=== PATIENT | male | born 1985 | race Caucasian/White ===

== ENCOUNTER 2020-01-31 06:08 | Day surgery (SDC) | payer BC ==
[2020-01-24 10:49] LABS: BASOPHILS % (AUTO) 0.7 % (0-1); EOSINOPHILS % (AUTO) 0.7 % (0-6); LYMPHOCYTES # (AUTO) 1.9 X10'3 (1.1-4.8); MEAN CORPUSCULAR HEMOGLOBIN 29.2 PG (27.0-31.0); MEAN CORPUSCULAR HGB CONC 34.5 g/dL (33.0-36.5); MEAN CORPUSCULAR VOLUME 84.8 FL (78-98); MEAN PLATELET VOLUME 6.9 FL (7.4-10.4); MONOCYTES # (AUTO) 0.6 X10'3 (0-0.9); MONOCYTES % (AUTO) 10.3 % (2-12); NEUTROPHILS # (AUTO) 3.3 X10'3 (1.8-7.7); NEUTROPHILS % (AUTO) 56.3 % (42-75); PRE OP HEMATOCRIT 44.2 % (42.0-52.0); PRE OP HEMOGLOBIN 15.2 g/dL (14.0-17.9); PRE OP PLATELET COUNT 302 X10'3 (140-440); RED BLOOD COUNT 5.21 X10'6 (4.70-6.10); RED CELL DISTRIBUTION WIDTH 12.8 % (11.5-14.5)
[2020-01-24 11:03] LABS: PRE OP PROTIME 10.4 SECONDS (9.0-12.0)
[2020-01-24 11:06] LABS: ALBUMIN 4.4 G/DL (3.4-5.0); ALBUMIN/GLOBULIN RATIO 1.2 (1.1-1.5); ALKALINE PHOSPHATASE 71 IU/L (46-116); BLOOD UREA NITROGEN 12 MG/DL (7-18); BUN/CREATININE RATIO 11.7 (5.4-32.0); CALCIUM 9.5 MG/DL (8.5-10.1); CHLORIDE 103 MMOL/L (99-107); CREATININE 1.03 MG/DL (0.60-1.10); PRE OP ALT 56 U/L (30-65); PRE OP ANION GAP 9 (8-16); PRE OP AST 24 U/L (10-37); PRE OP BILIRUB, TOTAL 0.5 MG/DL (0.0-1.0); PRE OP GLUCOSE 98 MG/DL (70-104); PRE OP POTASSIUM 4.1 MMOL/L (3.4-5.1); PRE OP SODIUM 139 MMOL/L (135-145); TOTAL CARBON DIOXIDE 27.3 MMOL/L (24-32); TOTAL PROTEIN 8.2 G/DL (6.4-8.2); eGFR 83 ML/MIN
[2020-01-31] VITALS (22 sets, daily range): BP systolic 115–148; BP diastolic 66–91
[~2020-01-31] VITALS: Ht 185.4 cm; Wt 117.9 kg
[~2020-01-31 06:08] MED LIST: CHOL100046 PO; FIBER SUPPLEMENT PO; FLEC150T PO; MULT-687 PO; VERA240T12 PO; famotidine 20mg tablet PO ONE; oxymetazoline 15 ML nasal spray NS ONE; ringers solution, lacted 1,000 ML IV SCH
[2020-01-31] MEDS ORDERED: LIDOcaine 1% (10mg/ml) 2ml vial ONE (06:44)
[2020-01-31] MEDS ORDERED: LIDOcaine 1% W/epiNEPHrine 1:100,000 20ml vial ONE (06:54)
[2020-01-31] MEDS ORDERED: mupirocin 2% ointment 22GM ONE (06:54)
[2020-01-31] MEDS ORDERED: cefTAZidime 1gm inj ONE (06:55)
[2020-01-31] MEDS ORDERED: oxymetazoline 15 ML nasal spray NS ONE (06:55)
[2020-01-31] MEDS ORDERED: methylPREDNISolone acetate 80mg/ml inj**IM only ONE ×2 (06:56→07:46)
[2020-01-31] MEDS ORDERED: cocaine 4% topical solution 4ml bottle ONE (06:59)
[2020-01-31] MEDS ORDERED: LIDOcaine 2% (20mg/ml) 5ml vial ONE (07:50)
[2020-01-31] MEDS ORDERED: propofol inj 20 ML IV ONE (07:50)
[2020-01-31] MEDS ORDERED: fentaNYL /PF 50mcg/ml 5ml ampule ONE (07:50)
[2020-01-31] MEDS ORDERED: MIDAZolam 5mg/5ml vial ONE (07:50)
[2020-01-31] MEDS ORDERED: ondansetron/PF 4mg/2ml inj ONE (07:51)
[2020-01-31] MEDS ORDERED: morphine 2 MG/ML inj. syringe IV PRN (08:00)
[2020-01-31] MEDS ORDERED: morphine 4 MG/ML inj SYRINge IV PRN (08:00)
[2020-01-31] MEDS ORDERED: ondansetron/PF 4mg/2ml inj IV PRN (08:00)
[2020-01-31] MEDS ORDERED: labetalol 20mg/4ml (5mg/ml) syringe IV PRN (08:00)
[2020-01-31] MEDS ORDERED: fentaNYL/PF 50MCG/1 ML 2ML syringe IV PRN ×2 (08:00)
[2020-01-31] MEDS ORDERED: ringers solution, lacted 1,000 ML IV SCH (08:00)
[2020-01-31] MEDS ORDERED: hydrALAZINE 20mg/ml inj. IV PRN (08:00)
[2020-01-31] MEDS ORDERED: dexamethasone sod phosphate 10mg/ml inj ONE (08:10)
[2020-01-31] MEDS ORDERED: sevoflurane 250ml liquid IH ONE (08:10)
[2020-01-31] MEDS ORDERED: BUPIVAcaine 0.5% W/EPI /PF 30ml vial IJ ONE (09:04)
[2020-01-31] MEDS ORDERED: labetalol 20mg/4ml (5mg/ml) syringe IV ONE (09:05)
--- NOTE | 2020-01-31 10:05 | NUR ---
TRANSPORTED FROM OR VIA GURNEY ACCOMPANIED BY ANESTHESIOLOGIST DR ZIEGLER, REPORT GIVEN. PT DROWSY BUT AWAKENS EASILY WITH NO COMPLAINT OF PAIN. COTTENOID DRESSING TO R NARES CDI. 20 GAUGE PIV R HAND PATENT AND RUNNING LR AT 100 ML/HR. SINGH,VSS, RESTING COMFORTABLY
[2020-01-31] MEDS ORDERED: oxymetazoline 15 ML nasal spray NS PRN (10:29)
[2020-01-31] MEDS ORDERED: mupirocin 2% ointment 22GM TP SCH (10:30)
[2020-01-31] MEDS ORDERED: salt irrigation nasal spray 45 ML SPRAY NS PRN (10:35)
[2020-01-31 11:30] LABS: PARTIAL THROMBOPLASTIN TIME 30 SECONDS (22-32)
--- NOTE | 2020-01-31 13:25 | NUR ---
PT AWAKE AND ALERT WITH NO COMPLAINT OF PAIN. COTTENOID DRESSING TO R NARES CDI. 20 GAUGE PIV r hand dc/d cath tip intact. SINGH,VSS, ABLE TO TOLERATE FLUIDS, DRESS SELF, AMBULATE AND VOID.VSS. DISCHARGE INSTRUCTIONS GIVEN AND PT VERBALIZED UNDERSTANDING. TRANSPORTED VIA WHEELCHAIR TO IN PRIVATE VEHICLE TO HOME. INSTRUCTIONS GIVEN TO WELL.
== END 2020-01-31 13:25 | disposition home or self-care (01) ==
LOC: PAS 06:08
PROVIDERS: ATTEND Otolaryngology
DX: J34.2 Deviated nasal septum (principal); J34.3 Hypertrophy of nasal turbinates; J32.8 Other chronic sinusitis; J95.62 Intraoperative hemorrhage and hematoma of a respiratory system organ or structure complicating other procedure; E66.9 Obesity, unspecified; Z68.34 Body mass index [BMI] 34.0-34.9, adult; F41.9 Anxiety disorder, unspecified; Z20.828 Contact with and (suspected) exposure to other viral communicable diseases; Z79.899 Other long term (current) drug therapy; Y83.8 Other surgical procedures as the cause of abnormal reaction of the patient, or of later complication, without mention of misadventure at the time of the procedure; Y82.8 Other medical devices associated with adverse incidents
CPT/HCPCS: 30140; 30520; 31254; 31256; 36415; 61782; 80053; 82948; 85025; 85576; 85610; 85730; 87635; A6402; C9250; J0713; J1040; J1100; J2001; J2250; J2405; J2704; J3010; J7040; J7120; A4618; A7000; J3490

== ENCOUNTER 2020-04-17 11:49 | Day surgery (SDC) | payer BC ==
[2020-04-12 10:49] LABS: BASOPHILS # (AUTO) 0.1 X10'3 (0-0.2); BASOPHILS % (AUTO) 0.9 % (0-1); EOSINOPHILS % (AUTO) 0.5 % (0-6); LYMPHOCYTES # (AUTO) 1.7 X10'3 (1.1-4.8); LYMPHOCYTES % (AUTO) 31.4 % (21-51); MEAN CORPUSCULAR HEMOGLOBIN 28.8 PG (27.0-31.0); MEAN CORPUSCULAR HGB CONC 34.3 g/dL (33.0-36.5); MEAN CORPUSCULAR VOLUME 83.9 FL (78-98); MEAN PLATELET VOLUME 7.2 FL (7.4-10.4); MONOCYTES # (AUTO) 0.6 X10'3 (0-0.9); NEUTROPHILS # (AUTO) 3.2 X10'3 (1.8-7.7); NEUTROPHILS % (AUTO) 57.2 % (42-75); PRE OP HEMOGLOBIN 15.1 g/dL (14.0-17.9); PRE OP PLATELET COUNT 285 X10'3 (140-440); RED BLOOD COUNT 5.24 X10'6 (4.70-6.10)
[2020-04-12 11:05] LABS: ALBUMIN 4.3 G/DL (3.4-5.0); ALBUMIN/GLOBULIN RATIO 1.1 (1.1-1.5); ALKALINE PHOSPHATASE 82 IU/L (46-116); BLOOD UREA NITROGEN 12 MG/DL (7-18); BUN/CREATININE RATIO 12.2 (5.4-32.0); CALCIUM 9.4 MG/DL (8.5-10.1); CHLORIDE 106 MMOL/L (99-107); CREATININE 0.98 MG/DL (0.60-1.10); PRE OP ALT 47 U/L (30-65); PRE OP ANION GAP 10 (8-16); PRE OP AST 23 U/L (10-37); PRE OP BILIRUB, TOTAL 0.5 MG/DL (0.0-1.0); PRE OP GLUCOSE 106 MG/DL (70-104); PRE OP POTASSIUM 4.2 MMOL/L (3.4-5.1); PRE OP SODIUM 142 MMOL/L (135-145); TOTAL CARBON DIOXIDE 25.9 MMOL/L (24-32); TOTAL PROTEIN 8.1 G/DL (6.4-8.2); eGFR 88 ML/MIN
[2020-04-17] VITALS (7 sets, daily range): BP systolic 111–154; BP diastolic 71–100
[~2020-04-17] VITALS: Ht 185.4 cm; Wt 118.7 kg
[~2020-04-17 11:49] MED LIST changes: +LIDOcaine 1% w/epiNEPHrine 1:200,000 30ml vial ONE; +cefTAZidime 1gm inj ONE; +cocaine 4% topical solution 4ml bottle ONE; +meperidine/PF 25mg/ml syringe IV PRN; +methylPREDNISolone acetate 80mg/ml inj**IM only ONE; +morphine 2 MG/ML inj. syringe IV PRN; +morphine 4 MG/ML inj SYRINge IV PRN; +mupirocin 2% ointment 22GM ONE; +ondansetron/PF 4mg/2ml inj IV PRN; +proCHLORperazine 10 MG/2 ml inj IV PRN
[2020-04-17] MEDS ORDERED: fentaNYL /PF 50mcg/ml 5ml ampule ONE (11:53)
[2020-04-17] MEDS ORDERED: midazolam 2 mg/2 ml injection ONE (11:53)
[2020-04-17] MEDS: oxymetazoline 15 ML nasal spray NS PRN ×2 (12:03→13:11)
[2020-04-17] MEDS ORDERED: dexamethasone sod phosphate 10mg/ml inj ONE (12:17)
[2020-04-17] MEDS ORDERED: sevoflurane 250ml liquid IH ONE (12:17)
[2020-04-17] MEDS ORDERED: ondansetron/PF 4mg/2ml inj ONE (12:17)
[2020-04-17] MEDS ORDERED: propofol inj 20 ML IV ONE (12:27)
[2020-04-17] MEDS ORDERED: LIDOcaine 2% (20mg/ml) 5ml vial ONE (12:27)
--- NOTE | 2020-04-17 13:38 | NUR ---
Received from OR via , accompanied by Anesthesiologist DR ABREU and report given by Anesthesiolgist. AWAKENS TO VOICE. VITALS STABLE, DRESSINGS DI. STAS PAIN.
[2020-04-17] MEDS ORDERED: salt irrigation nasal spray 45 ML SPRAY NS PRN (14:10)
[2020-04-17] MEDS ORDERED: mupirocin 2% ointment 22GM TP SCH (14:18)
--- NOTE | 2020-04-17 14:48 | NUR ---
AWAKE AND ORIENTED. VITALS STABLE. COTTONOIDS WERE REMOVEED AND MUSTACHE DRESSING APPLIED. DRESSING IS DI. STAS PAIN. HOME WITH HIS AT THIS TIME.
== END 2020-04-17 14:48 | disposition home or self-care (01) ==
LOC: PAS 11:49
PROVIDERS: ATTEND Otolaryngology
DX: J32.8 Other chronic sinusitis (principal); J34.3 Hypertrophy of nasal turbinates; E66.9 Obesity, unspecified; Z68.34 Body mass index [BMI] 34.0-34.9, adult; Z79.899 Other long term (current) drug therapy; Z98.890 Other specified postprocedural states; Z20.828 Contact with and (suspected) exposure to other viral communicable diseases
CPT/HCPCS: 30140; 31254; 31267; 36415; 61782; 80053; 82948; 85025; 87635; A6402; C9250; J0713; J1040; J1100; J2001; J2250; J2405; J2704; J3010; J7040; J7120; A4618; A7000

== ENCOUNTER 2021-11-24 12:18 | Emergency (ER) | payer BC ==
[~2021-11-24] VITALS: Ht 185.4 cm; Wt 118.2 kg
[~2021-11-24 12:18] MED LIST changes: -LIDOcaine 1% w/epiNEPHrine 1:200,000 30ml vial ONE; -VERA240T12 PO; +VERA240T92 PO; -cefTAZidime 1gm inj ONE; -cocaine 4% topical solution 4ml bottle ONE; -famotidine 20mg tablet PO ONE; -meperidine/PF 25mg/ml syringe IV PRN; -methylPREDNISolone acetate 80mg/ml inj**IM only ONE; -morphine 2 MG/ML inj. syringe IV PRN; -morphine 4 MG/ML inj SYRINge IV PRN; -mupirocin 2% ointment 22GM ONE; -ondansetron/PF 4mg/2ml inj IV PRN; -oxymetazoline 15 ML nasal spray NS ONE; -proCHLORperazine 10 MG/2 ml inj IV PRN; -ringers solution, lacted 1,000 ML IV SCH
[2021-11-24] MEDS ORDERED: normal saline 1000ML IV soln IVB ONE (12:25)
[2021-11-24] MEDS ORDERED: ondansetron/PF 4mg/2ml inj IV ONE (12:25)
[2021-11-24] MEDS ORDERED: adenosine 3mg/ml 2ml vial IV ONE (12:25)
[2021-11-24 12:38] LABS: BASOPHILS # (AUTO) 0.1 X10'3 (0-0.2); BASOPHILS % (AUTO) 1.1 % (0-1); EOSINOPHILS # (AUTO) 0.1 X10'3 (0-0.9); EOSINOPHILS % (AUTO) 0.9 % (0-6); HEMATOCRIT 47.7 % (42.0-52.0); HEMOGLOBIN 16.6 g/dl (14.0-17.9); LYMPHOCYTES % (AUTO) 42.3 % (21-51); MEAN CORPUSCULAR HEMOGLOBIN 28.9 PG (27.0-31.0); MEAN CORPUSCULAR HGB CONC 34.7 g/dL (33.0-36.5); MEAN CORPUSCULAR VOLUME 83.2 FL (78-98); MEAN PLATELET VOLUME 7.3 FL (7.4-10.4); MONOCYTES # (AUTO) 0.9 X10'3 (0-0.9); MONOCYTES % (AUTO) 9.8 % (2-12); NEUTROPHILS # (AUTO) 4.4 X10'3 (1.8-7.7); NEUTROPHILS % (AUTO) 45.9 % (42-75); PLATELET COUNT 368 X10'3 (140-440); RED BLOOD COUNT 5.73 X10'6 (4.70-6.10); RED CELL DISTRIBUTION WIDTH 13.4 % (11.5-14.5); WHITE BLOOD COUNT 9.6 X10'3 (4.5-11.0)
[2021-11-24 12:55] LABS: ALANINE AMINOTRANSFERASE 52 U/L (12-78); ALBUMIN 4.6 G/DL (3.4-5.0); ALBUMIN/GLOBULIN RATIO 1.1 (1.1-1.5); ALKALINE PHOSPHATASE 81 IU/L (46-116); ANION GAP 16 (8-16); ASPARTATE AMINO TRANSFERASE 23 U/L (10-37); BILIRUBIN,TOTAL 0.5 MG/DL (0.1-1.0); BLOOD UREA NITROGEN 13 MG/DL (7-18); BUN/CREATININE RATIO 9.8 (5.4-32.0); CALCIUM 9.3 MG/DL (8.5-10.1); CHLORIDE 103 MMOL/L (99-107); CREATININE 1.32 MG/DL (0.60-1.10); GLUCOSE 157 MG/DL (70-104); POTASSIUM 3.6 MMOL/L (3.5-5.1); SODIUM 138 MMOL/L (135-145); TOTAL CARBON DIOXIDE 18.9 MMOL/L (24-32); TOTAL PROTEIN 8.7 G/DL (6.4-8.2); eGFR 62 ML/MIN
[2021-11-24 13:03] LABS: MAGNESIUM 1.9 MG/DL (1.5-2.4)
[2021-11-24] MEDS ORDERED: flecainide 50mg tablet PO STA (13:19)
[2021-11-24] MEDS ORDERED: ringers solution, lacted 1,000 ML IV ONE (13:20)
[2021-11-24 14:52] VITALS: BP 127/82
== END 2021-11-24 14:54 | disposition home or self-care (01) ==
LOC: ER 12:19
DX: I47.1 Supraventricular tachycardia (principal)
CPT/HCPCS: 36415; 71045; 80053; 83735; 83880; 84484; 85025; 93005; 96360; 99285; J7030; J7120

== ENCOUNTER 2022-09-18 15:57 | Emergency (ER) | payer BC ==
[~2022-09-18] VITALS: Ht 185.4 cm; Wt 118.2 kg
[2022-09-18 16:14] VITALS: BP 139/93
[2022-09-18 16:29] LABS: BASOPHILS % (AUTO) 0.7 % (0-1); EOSINOPHILS # (AUTO) 0.1 X10'3 (0-0.9); EOSINOPHILS % (AUTO) 1.1 % (0-6); HEMATOCRIT 42.6 % (42.0-52.0); HEMOGLOBIN 14.6 g/dl (14.0-17.9); LYMPHOCYTES # (AUTO) 2.1 X10'3 (1.1-4.8); LYMPHOCYTES % (AUTO) 32.1 % (21-51); MEAN CORPUSCULAR HEMOGLOBIN 29.1 PG (27.0-31.0); MEAN CORPUSCULAR HGB CONC 34.3 g/dL (33.0-36.5); MEAN CORPUSCULAR VOLUME 84.9 FL (78-98); MEAN PLATELET VOLUME 7.1 FL (7.4-10.4); MONOCYTES # (AUTO) 0.6 X10'3 (0-0.9); MONOCYTES % (AUTO) 8.4 % (2-12); NEUTROPHILS # (AUTO) 3.8 X10'3 (1.8-7.7); NEUTROPHILS % (AUTO) 57.7 % (42-75); PLATELET COUNT 289 X10'3 (140-440); RED BLOOD COUNT 5.02 X10'6 (4.70-6.10); RED CELL DISTRIBUTION WIDTH 13.2 % (11.5-14.5); WHITE BLOOD COUNT 6.6 X10'3 (4.5-11.0)
[2022-09-18 16:42] LABS: ALANINE AMINOTRANSFERASE 50 U/L (12-78); ALBUMIN 4.4 G/DL (3.4-5.0); ALBUMIN/GLOBULIN RATIO 1.3 (1.1-1.5); ALKALINE PHOSPHATASE 86 IU/L (46-116); ANION GAP 11 (8-16); ASPARTATE AMINO TRANSFERASE 46 U/L (10-37); BILIRUBIN,TOTAL 0.3 MG/DL (0.1-1.0); BLOOD UREA NITROGEN 18 MG/DL (7-18); BUN/CREATININE RATIO 18.9 (10.0-20.0); CALCIUM 9.4 MG/DL (8.5-10.1); CHLORIDE 103 MMOL/L (99-107); CREATININE 0.95 MG/DL (0.60-1.10); GLUCOSE 93 MG/DL (70-104); POTASSIUM 3.6 MMOL/L (3.5-5.1); SODIUM 140 MMOL/L (135-145); TOTAL CARBON DIOXIDE 26.4 MMOL/L (24-32); TOTAL PROTEIN 7.8 G/DL (6.4-8.2); eGFR 90 ML/MIN
[2022-09-18 16:50] LABS: MAGNESIUM 2.1 MG/DL (1.5-2.4)
== END 2022-09-18 17:41 | disposition home or self-care (01) ==
LOC: ER 15:58
DX: R07.89 Other chest pain (principal)
CPT/HCPCS: 36415; 71045; 80053; 83735; 83880; 84484; 85025; 93005; 99285

== ENCOUNTER 2022-10-20 08:36 | Emergency (ER) | payer BC ==
[~2022-10-20] VITALS: Ht 185.4 cm; Wt 111.0 kg
[2022-10-20 09:06] LABS: CLARITY,URINE SLIGHTLY CLOUDY (Clear); COLOR,URINE YELLOW (Yellow); GLUCOSE, URINE NEGATIVE (Neg); KETONES,URINE NEGATIVE (Neg); LEUKOCYTE ESTERASE ,URINE NEGATIVE (Neg); NITRITES, URINE NEGATIVE (Neg); OCCULT BLOOD,URINE TRACE-INTACT (Neg); PROTEIN,URINE NEGATIVE (Neg); UROBILINOGEN,URINE 0.2 E.U/dL (0.2-1.0)
[2022-10-20 09:11] LABS: UA COLLECTION TYPE CLN CATCH MIDSTREAM
[2022-10-20 09:22] LABS: BACTERIA,URINE FEW /HPF (Neg); MUCUS STRANDS MANY /LPF (Neg); RBC,URINE 0-2 /HPF (0-2); SQUAMOUS EPITHELIAL CELL,UR MODERATE /LPF (FEW); WBC,URINE 0-4 /HPF (0-4)
[2022-10-20 09:28] LABS: BASOPHILS % (AUTO) 0.5 % (0-1); EOSINOPHILS # (AUTO) 0.1 X10'3 (0-0.9); EOSINOPHILS % (AUTO) 1.8 % (0-6); HEMATOCRIT 44.1 % (42.0-52.0); HEMOGLOBIN 14.8 g/dl (14.0-17.9); LYMPHOCYTES # (AUTO) 1.4 X10'3 (1.1-4.8); LYMPHOCYTES % (AUTO) 32.5 % (21-51); MEAN CORPUSCULAR HEMOGLOBIN 28.3 PG (27.0-31.0); MEAN CORPUSCULAR HGB CONC 33.5 g/dL (33.0-36.5); MEAN CORPUSCULAR VOLUME 84.4 FL (78-98); MEAN PLATELET VOLUME 7.2 FL (7.4-10.4); MONOCYTES # (AUTO) 0.6 X10'3 (0-0.9); MONOCYTES % (AUTO) 15.1 % (2-12); NEUTROPHILS # (AUTO) 2.1 X10'3 (1.8-7.7); NEUTROPHILS % (AUTO) 50.1 % (42-75); PLATELET COUNT 245 X10'3 (140-440); RED BLOOD COUNT 5.22 X10'6 (4.70-6.10); RED CELL DISTRIBUTION WIDTH 13.3 % (11.5-14.5); WHITE BLOOD COUNT 4.3 X10'3 (4.5-11.0)
[2022-10-20] MEDS ORDERED: famotidine/PF 10 mg/ml inj IV ONE (09:30)
[2022-10-20] MEDS ORDERED: normal saline 1000ML IV soln IVB ONE (09:30)
[2022-10-20] MEDS ORDERED: ondansetron/PF 4mg/2ml inj IV ONE (09:30)
[2022-10-20 09:53] LABS: ANION GAP 13 (8-16); BILIRUBIN,TOTAL 0.9 MG/DL (0.1-1.0); BLOOD UREA NITROGEN 10 MG/DL (7-18); BUN/CREATININE RATIO 9.4 (10.0-20.0); CHLORIDE 103 MMOL/L (99-107); CREATININE 1.06 MG/DL (0.60-1.10); GLUCOSE 94 MG/DL (70-104); POTASSIUM 3.3 MMOL/L (3.5-5.1); SODIUM 140 MMOL/L (135-145); eGFR 79 ML/MIN
[2022-10-20 09:54] LABS: ALANINE AMINOTRANSFERASE 100 U/L (12-78); ALBUMIN 4.2 G/DL (3.4-5.0); ALBUMIN/GLOBULIN RATIO 1.1 (1.1-1.5); ALKALINE PHOSPHATASE 79 IU/L (46-116); ASPARTATE AMINO TRANSFERASE 55 U/L (10-37); LIPASE 150 U/L (73-393); TOTAL PROTEIN 7.9 G/DL (6.4-8.2)
[2022-10-20] MEDS ORDERED: ONDA4TAB12 PO (10:32)
[2022-10-20] MEDS ORDERED: mag hydrox/Alum hydrox/simeth 30ml oral suspension PO ONE (10:35)
[2022-10-20] MEDS ORDERED: loperamide 2mg capsule PO ONE (10:35)
[2022-10-20] MEDS ORDERED: sucralfate 1 gm tablet PO ONE (10:35)
[2022-10-20] MEDS ORDERED: LIDOcaine Viscous 15ml cup MM ONE (10:35)
[2022-10-20 11:40] VITALS: BP 125/88
== END 2022-10-20 11:15 | disposition home or self-care (01) ==
LOC: ER 08:37
DX: A08.4 Viral intestinal infection, unspecified (principal); R53.83 Other fatigue; R53.1 Weakness
CPT/HCPCS: 36415; 80053; 81001; 83690; 85025; 96361; 96374; 96375; 99284; J2405; J3490; J7030

== ENCOUNTER 2024-03-09 19:03 | Emergency (ER) | payer BC ==
[~2024-03-09] VITALS: Ht 185.4 cm; Wt 127.3 kg
[~2024-03-09 19:03] MED LIST changes: +ONDA-243 PO
[2024-03-09 19:07] VITALS: TEMP 98.4
[2024-03-09] MEDS ORDERED: diltiazem-D5W 125mg/125ml 125 ML IV PRN (19:30)
[2024-03-09] MEDS ORDERED: diltiazem-NS 100mg/100ml 125 ML IV PRN (19:38)
[2024-03-09] MEDS: metoprolol tartrate 1mg/ml inj IV SCH (19:44)
[2024-03-09 19:47] LABS: BASOPHILS % (AUTO) 0.2 % (0-1); EOSINOPHILS % (AUTO) 0 % (0-6); HEMATOCRIT 46.8 % (42.0-52.0); HEMOGLOBIN 15.9 g/dl (14.0-17.9); LYMPHOCYTES # (AUTO) 0.5 X10'3 (1.1-4.8); LYMPHOCYTES % (AUTO) 3.3 % (21-51); MEAN CORPUSCULAR HGB CONC 34.1 g/dL (33.0-36.5); MEAN CORPUSCULAR VOLUME 85.3 FL (78-98); MEAN PLATELET VOLUME 7.6 FL (7.4-10.4); MONOCYTES # (AUTO) 0.8 X10'3 (0-0.9); MONOCYTES % (AUTO) 6.2 % (2-12); NEUTROPHILS # (AUTO) 12.3 X10'3 (1.8-7.7); NEUTROPHILS % (AUTO) 90.3 % (42-75); PLATELET COUNT 294 X10'3 (140-440); RED BLOOD COUNT 5.49 X10'6 (4.70-6.10); RED CELL DISTRIBUTION WIDTH 13.1 % (11.5-14.5); WHITE BLOOD COUNT 13.6 X10'3 (4.5-11.0)
[2024-03-09] MEDS: aspirin 81mg tab.chew PO ONE ×2 (19:51→20:25)
[2024-03-09] MEDS: magnesium sulf-water 2g/50mL 50 ML IV ONE (19:52)
[2024-03-09] MEDS: normal saline 1000ml 1,000 ML IV ONE (19:52)
[2024-03-09 19:59] LABS: ALBUMIN 4.2 G/DL (3.4-5.0); ANION GAP 16 (8-16); BLOOD UREA NITROGEN 16 MG/DL (7-18); BUN/CREATININE RATIO 11.3 (10.0-20.0); CALCIUM 8.8 MG/DL (8.5-10.1); CHLORIDE 103 MMOL/L (99-107); CREATININE 1.41 MG/DL (0.60-1.10); ETHANOL < 10 MG/DL (<10); GLUCOSE 145 MG/DL (70-104); MAGNESIUM 1.7 MG/DL (1.5-2.4); POTASSIUM 3.7 MMOL/L (3.5-5.1); PRO BRAIN NATRIURETIC PEPTIDE 30 PG/ML (0-125); SODIUM 139 MMOL/L (135-145); TOTAL CARBON DIOXIDE 19.8 MMOL/L (24-32); eCRCL 80 ML/MIN; eGFR 56 ML/MIN
[2024-03-09] MEDS ORDERED: diltiazem-NS 100mg/100ml 100 ML IV PRN (20:24)
[2024-03-09] MEDS: adenosine 3mg/ml 2ml vial IV ONE ×2 (20:56→20:59)
[2024-03-09 21:05] VITALS: PULSE 111; RESP 14
[2024-03-09] MEDS ORDERED: flecainide 50mg tablet PO ONE (21:05)
[2024-03-09] MEDS: diltiazem 5mg/ml 5ml inj. IV ONE (21:06)
[2024-03-09 22:09] VITALS: BP 123/90; PULSE 111; RESP 20; O2SAT 96
== END 2024-03-09 22:18 | disposition home or self-care (01) ==
LOC: ER 19:04
DX: I47.19 Other supraventricular tachycardia (principal); I48.91 Unspecified atrial fibrillation; Z79.899 Other long term (current) drug therapy; Z98.890 Other specified postprocedural states; Z88.1 Allergy status to other antibiotic agents
CPT/HCPCS: 36415; 71045; 80048; 80320; 83735; 83880; 84484; 85025; 92960; 93005; 96365; 96366; 96375; 99291; J0153; J3490; J7030; 94760; 99285; A4620